=== PATIENT | male | born 1955 | race Caucasian/White ===

== ENCOUNTER 2025-08-14 12:18 | Day surgery (SDC) | payer OTHER ==
[~2025-08-14] VITALS: Ht 182.9 cm; Wt 80.0 kg
[~2025-08-14 12:18] MED LIST: Glycopyrrolate 0.2 MG/ML 1MLVIAL ONE; Ondansetron HCl 2 MG / ML 2ML Vial ONE; ePHEDrine Sulfate 50 MG/ML 1ML Injection ONE
[2025-08-14] MEDS ORDERED: ABIRATERONE AC250 MG (12:47)
[2025-08-14] MEDS ORDERED: AMLODIPINE BESY10 MG (12:47)
[2025-08-14] MEDS ORDERED: PRED1 (12:47)
[2025-08-14] MEDS ORDERED: ATORVASTATIN CA20 MG (12:48)
== END 2025-08-14 15:09 | disposition home or self-care (01) ==
LOC: ORSCSDS 12:18
PROVIDERS: Internal Medicine Gastroenterology
PROC: 0DBH8ZX Excision of Cecum, Via Natural or Artificial Opening Endoscopic, Diagnostic (ICD-10-PCS; principal; 2025-08-14 13:45)
PROC: 0DBP8ZX Excision of Rectum, Via Natural or Artificial Opening Endoscopic, Diagnostic (ICD-10-PCS; principal; 2025-08-14 13:45)
PROC: 0DBL8ZX Excision of Transverse Colon, Via Natural or Artificial Opening Endoscopic, Diagnostic (ICD-10-PCS; principal; 2025-08-14 13:45)
PROC: 0DBK8ZX Excision of Ascending Colon, Via Natural or Artificial Opening Endoscopic, Diagnostic (ICD-10-PCS; principal; 2025-08-14 13:45)
DX: Z12.11 Encounter for screening for malignant neoplasm of colon (principal); D12.0 Benign neoplasm of cecum; D12.2 Benign neoplasm of ascending colon; D12.3 Benign neoplasm of transverse colon; D12.8 Benign neoplasm of rectum; K62.7 Radiation proctitis; K57.30 Diverticulosis of large intestine without perforation or abscess without bleeding; Z86.0101 Personal history of adenomatous and serrated colon polyps; Z85.46 Personal history of malignant neoplasm of prostate
CPT/HCPCS: 88305; J0461; J2003; J2405; J2704; J7120; Q9968